=== PATIENT | female | born 1965 | race Caucasian/White ===

== ENCOUNTER 2016-07-14 14:00 | Day surgery (SDC) | payer BC ==
--- NOTE | 2016-07-14 15:18 | Operative Note ---
Colonoscopy ([facility]) Procedure date: 07/14/16 Date of : 67 Procedure:Colonoscopy Colonoscopy with cold snare polypectomy Indications: Mrs. Theodore is a 50-year-old female who is here for initial screening colonoscopy. She does state that both of her paternal uncles had colon cancer. Her paternal grandmother had colon cancer. She has 5-7 great uncles and great aunts on the paternal side with colon cancer. The patient does report some postprandial bowel urgency and diarrhea. This has improved after cutting back on carbonated beverages (Mountain Dew). The patient reports no abdominal pain, rectal bleeding or unintentional weight loss. The patient does have mildly elevated liver chemistries presumptively secondary to SALGADO and EtOH. Performing Provider: Netta Amin MD Referrring Provider: Jefry Jean M.D. Sedation: Fentanyl 150 mg IV/Versed 7 mg IV Procedure: Prior to the procedure, a history and physical exam was performed, and patient medications and allergies were reviewed. The risks and benefits of the procedure and the sedation options and risks were discussed with the patient. All questions were answered and informed consent was obtained. Patient identification and proposed procedure were verified by the physician and the nurse. The patient was placed in a left lateral decubitus position. Throughout the procedure, the patient's blood pressure, pulse, and oxygen saturations were monitored continuously. Findings: On digital rectal examination there was normal rectal tone. There were no external hemorrhoids. The colonoscope was introduced through the anal canal to the rectum and advanced to the cecum. The ileocecal valve and appendiceal orifice were identified. The scope was advanced a short distance into the ileum which appeared grossly normal. The scope was then withdrawn into the colon. There were 3 diminutive colon polyps identified in the descending 1 and sigmoid polypectomy. There were very mildly scattered diverticuli throughout the descending and sigmoid colon (LEFT colon). The rectum itself was normal. Upon retroflexion within the rectum there were grade 1 internal hemorrhoids. Impressions: 1. Diminutive colonic polyps 3 2. Mild left-sided diverticulosis 3. Grade 1 internal hemorrhoids Recommendations: I will follow up the polyp pathology and recommend repeat colonoscopy again in 5 years based upon the polyp histology and the patient's family history. I would encourage a probiotic and fiber bulk supplementation on a long-term daily maintenance basis. Complications: None EBL (ml): 0 at [id number]
[2016-07-14 16:43] VITALS: BP 138/88
== END 2016-07-14 15:55 | disposition home or self-care (01) ==
LOC: SDC 14:00
PROVIDERS: Internal Medicine Gastroenterology
PROC: 0DBN8ZX Excision of Sigmoid Colon, Via Natural or Artificial Opening Endoscopic, Diagnostic (ICD-10-PCS; 2016-07-14)
PROC: 0DBM8ZX Excision of Descending Colon, Via Natural or Artificial Opening Endoscopic, Diagnostic (ICD-10-PCS; principal; 2016-07-14 14:30)
DX: D12.4 Benign neoplasm of descending colon (principal); D12.5 Benign neoplasm of sigmoid colon; K57.30 Diverticulosis of large intestine without perforation or abscess without bleeding; K64.0 First degree hemorrhoids